=== PATIENT | male | born 1960 | race Two or more races ===

== ENCOUNTER 2017-10-13 11:17 | Emergency (ER) | payer OTHER, MEDICARE ==
--- NOTE | 2017-10-13 11:47 | ER Document Report ---
ED Medical Screen (RME) - General Chief Complaint: High Blood Pressure Stated Complaint: BLOOD PRESSURE ISSUES Time Seen by Provider: 10/13/17 11:45 Mode of Arrival: Ambulatory Information source: Patient Notes: 57-year-old male presents from the [place] with concerns of high blood pressure. Patient notes he is on lisinopril, his dosage was cut in half over the past month, patient denies any fevers or chills, patient does admit headache and left jaw pain. Patient notes symptoms have been worsening over the past week I have greeted and performed a rapid initial assessment of this patient. A comprehensive ED assessment and evaluation of the patient, analysis of test results and completion of the medical decision making process will be conducted by additional ED providers. PHYSICAL EXAMINATION: GENERAL: Well-appearing, well-nourished and in no acute distress. hypertensive HEAD: Atraumatic, normocephalic. EYES: Pupils equal round extraocular movements intact, conjunctiva are normal. ENT: Nares patent NECK: Normal range of motion LUNGS: No respiratory distress Musculoskeletal: Normal range of motion NEUROLOGICAL: Normal speech, normal gait. PSYCH: Normal mood, normal affect. SKIN: Warm, Dry, normal turgor, no rashes or lesions noted. TRAVEL OUTSIDE OF THE [place] IN LAST 30 DAYS: No - Related Data Allergies/Adverse Reactions: No Known Allergies Allergy (Unverified 10/13/17 11:19) Physical Exam - Vital signs Vitals: Temp Pulse Resp BP Pulse Ox 98.7 F 75 20 206/96 H 94 10/13/17 11:22 10/13/17 11:22 10/13/17 11:22 10/13/17 11:22 10/13/17 11:22 Course - Vital Signs Vital signs: Temp Pulse Resp BP Pulse Ox 98.7 F 75 20 206/96 H 94 10/13/17 11:22 10/13/17 11:22 10/13/17 11:22 10/13/17 11:22 10/13/17 11:22
[2017-10-13] MEDS ORDERED: CLONIDINE HCL 0.2 MG TABLET PO ONE (11:55)
[2017-10-13 12:18] LABS: ABSOLUTE BASOPHILS # (AUTO) 0.1 10^3/uL (0.0-0.2); ABSOLUTE EOSINOPHILS # (AUTO) 0.2 10^3/uL (0.0-0.6); ABSOLUTE LYMPHOCYTES (AUTO) 2.6 10^3/uL (0.5-4.7); ABSOLUTE MONOCYTES (AUTO) 0.7 10^3/uL (0.1-1.4); ABSOLUTE NEUT (AUTO) 4.5 10^3/uL (1.7-8.2); BASOPHILS % (AUTO) 0.8 % (0-2); HEMATOCRIT 51.3 % (37.9-51.0); HEMOGLOBIN 17.3 g/dL (13.5-17.0); LYMPHOCYTES % (AUTO) 32.8 % (13-45); MEAN CORPUSCULAR HEMOGLOBIN 31.6 pg (27.0-33.4); MEAN CORPUSCULAR HGB CONC 33.8 g/dL (32.0-36.0); MEAN CORPUSCULAR VOLUME 93 fl (80-97); MONOCYTES % (AUTO) 8.5 % (3-13); PLATELET COUNT 167 10^3/uL (150-450); RED BLOOD COUNT 5.49 10^6/uL (4.35-5.55); RED CELL DISTRIBUTION WIDTH 13.4 % (11.5-14.0); SEGMENTED NEUTROPHILS % (AUTO) 55.9 % (42-78); TOTAL CELLS COUNTED % (AUTO) 100 %; WHITE BLOOD COUNT 8.1 10^3/uL (4.0-10.5)
--- NOTE | 2017-10-13 12:32 | RADIOLOGY REPORT (SQ) ---
EXAM DESCRIPTION: CT HEAD WITHOUT COMPLETED DATE/TIME: 10/13/2017 12:15 pm REASON FOR STUDY: hypertension COMPARISON: None. TECHNIQUE: Axial images acquired through the brain without intravenous contrast. Images reviewed wi th bone, brain and subdural windows. Images stored on PACS. All CT scanners at this facility use dose modulation, iterative reconstruction, and/or weight based d osing when appropriate to reduce radiation dose to as low as reasonably achievable (ALARA). [facility]: Dose Right [facility]: CareDose [facility]: Dose Right [facility]: Teradose 4D [facility]: VERTILAS RADIATION DOSE: CT Rad equipment meets quality standard of care and radiation dose reduction techniq ues were employed. CTDIvol: 64.6 mGy. DLP: 1163 mGy-cm. mGy. LIMITATIONS: Very mild motion artifact FINDINGS: VENTRICLES: Normal size and contour. CEREBRUM: No masses. No hemorrhage. No midline shift. No evidence for acute infarction. Normal gra y/white matter differentiation. No areas of low density in the white matter. CEREBELLUM: No masses. No hemorrhage. No alteration of density. No evidence for acute infarction. EXTRAAXIAL SPACES: No fluid collections. No masses. ORBITS AND GLOBE: No intra- or extraconal masses. Normal contour of globe without masses. CALVARIUM: No fracture. PARANASAL SINUSES: No fluid or mucosal thickening. SOFT TISSUES: No mass or hematoma. OTHER: No other significant finding. IMPRESSION: NORMAL BRAIN CT WITHOUT CONTRAST. EVIDENCE OF ACUTE STROKE: NO. COMMENT: Quality ID # [id number]: Final reports with documentation of one or more dose reduction techniques (e.g., Automated exposure control, adjustment of the mA and/or kV according to patient size, use of iterative reconstruction technique) TECHNICAL DOCUMENTATION: JOB ID: [id number] [employer]- All Rights Reserved
--- NOTE | 2017-10-13 12:36 | RADIOLOGY REPORT (SQ) ---
EXAM DESCRIPTION: CHEST PA/LAT COMPLETED DATE/TIME: 10/13/2017 12:28 pm REASON FOR STUDY: hypertension COMPARISON: None. EXAM PARAMETERS: NUMBER OF VIEWS: two views TECHNIQUE: Digital Frontal and Lateral radiographic views of the chest acquired. RADIATION DOSE: NA LIMITATIONS: none FINDINGS: LUNGS AND PLEURA: No opacities, masses or pneumothorax. No pleural effusion. MEDIASTINUM AND HILAR STRUCTURES: No masses or contour abnormalities. HEART AND VASCULAR STRUCTURES: Heart normal size. No evidence for failure. BONES: No acute findings. HARDWARE: None in the chest. OTHER: No other significant finding. IMPRESSION: NO SIGNIFICANT RADIOGRAPHIC FINDING IN THE CHEST. TECHNICAL DOCUMENTATION: JOB ID: [id number] [employer]- All Rights Reserved
[2017-10-13 12:42] LABS: ALANINE AMINOTRANSFERASE 63 U/L (21-72); ALBUMIN 4.4 g/dL (3.5-5.0); ALKALINE PHOSPHATASE 86 U/L (38-126); ANION GAP 11 (5-19); ASPARTATE AMINO TRANSFERASE 72 U/L (17-59); BILIRUBIN,DIRECT 0.4 mg/dL (0.0-0.4); BILIRUBIN,TOTAL 0.8 mg/dL (0.2-1.3); BLOOD UREA NITROGEN 15 mg/dL (7-20); CALCIUM 9.1 mg/dL (8.4-10.2); CARBON DIOXIDE 26 mmol/L (22-30); CHLORIDE 104 mmol/L (98-107); CREATINE KINASE 133 U/L (55-170); GLUCOSE 99 mg/dL (75-110); POTASSIUM 3.9 mmol/L (3.6-5.0); SODIUM 140.6 mmol/L (137-145); TOTAL PROTEIN 8.3 g/dL (6.3-8.2)
[2017-10-13] MEDS ORDERED: FUROSEMIDE 40 MG TABLET PO ONE (12:52)
[2017-10-13 12:53] LABS: CREATINE KINASE MB 3.44 ng/mL (<4.55)
[2017-10-13 12:55] LABS: TROPONIN I < 0.012 ng/mL
--- NOTE | 2017-10-13 12:59 | ER Document Report ---
ED Blood Pressure Problem - General Chief Complaint: High Blood Pressure Stated Complaint: BLOOD PRESSURE ISSUES Time Seen by Provider: 10/13/17 11:45 Mode of Arrival: Ambulatory Notes: Patient was referred here from the [place] [facility] where he was seen today and his blood pressure was high. He thinks it was about 180/110. He has a history of hypertension and was on lisinopril 40 mg a day, but a few months ago, he was advised to cut those pills in half and take 20 mg a day, which he says he is doing. He has previously also been on Lasix 40 mg daily, but the [place] told him to get his primary care to write prescriptions for that medication, so he has not been taking it for several months. He is having pain in both of his shoulders and in his neck where he has had a cervical fusion. Denies chest pain. Denies any difficulty breathing or shortness of breath. Also says he is having some jaw pain. Apparently someone questioned whether he might be having a stroke, although the patient denies any neurologic deficits or loss of consciousness, etc. does say he has a "massive" headache. Patient was triaged here and his blood pressure was 206/96 and he was given 0.2 mg of clonidine p.o. in triage. Patient has a history of A. fib with ablation therapy and now is in a normal sinus rhythm. High cholesterol. TRAVEL OUTSIDE OF THE [place] IN LAST 30 DAYS: No - Related Data Allergies/Adverse Reactions: No Known Allergies Allergy (Verified 10/13/17 12:21) Past Medical History - General Information source: Patient - Social History Smoking Status: Former Smoker Chew tobacco use (# tins/day): No Frequency of alcohol use: None Drug Abuse: None Family History: Reviewed & Not Pertinent Patient has suicidal ideation: No Patient has homicidal ideation: No - Past Medical History Cardiac Medical History: Reports: Hx Atrial Fibrillation - Ablation therapy, Hx Hypercholesterolemia, Hx Hypertension Neurological Medical History: Denies: Hx Cerebrovascular Accident Endocrine Medical History: Denies: Hx Diabetes Mellitus Type 1, Hx Diabetes Mellitus Type 2 Musculoskeltal Medical History: Reports Hx Arthritis Psychiatric Medical History: Reports: Hx Anxiety, Hx Depression Past Surgical History: Reports: Hx Orthopedic Surgery - right knee Review of Systems - Review of Systems Notes: REVIEW OF SYSTEMS: CONSTITUTIONAL : Denies fever. EENT: Denies eye, ear, nose or mouth or throat pain or other symptoms. Jaw pain off and on for the past month. CARDIOVASCULAR: Denies chest pain. RESPIRATORY: Denies cough, chest congestion, or shortness of breath. GASTROINTESTINAL: Denies abdominal pain or nausea, vomiting, or diarrhea. GENITOURINARY: Denies difficulty or painful urinating, urinary frequency, blood in urine. MUSCULOSKELETAL: Denies back or neck pain. Denies joint pain or swelling. SKIN: Denies rash or skin lesions. NEUROLOGICAL: Denies LOC or altered mental status. Has a "massive" headache now. Denies sensory loss or motor deficits. ALL OTHER SYSTEMS REVIEWED AND NEGATIVE. Physical Exam - Vital signs Vitals: Temp Pulse Resp BP Pulse Ox 98.7 F 75 20 206/96 H 94 10/13/17 11:22 10/13/17 11:22 10/13/17 11:22 10/13/17 11:22 10/13/17 11:22 Interpretation: Hypertensive - Notes Notes: PHYSICAL EXAMINATION: GENERAL: Well-appearing, in no acute distress. Triage blood pressure was 206/ 96. Other vital signs all normal. HEAD: Atraumatic, normocephalic. EYES: Pupils equal round and reactive to light, extraocular movements intact. ENT: oropharynx clear without exudates. Moist mucous membranes. NECK: Normal range of motion, supple. Some limitation in movement because the patient experiences pain. No carotid bruits heard. LUNGS: Breath sounds clear and equal bilaterally. HEART: Regular rate and rhythm without murmurs. Sinus rhythm by monitor at the bedside. ABDOMEN: Soft, nontender. No guarding or rebound. No masses. BACK: No tenderness throughout entire back. EXTREMITIES: Normal range of motion without pain. NEUROLOGICAL: Normal speech, normal gait. Normal sensory, motor, and reflex exams. Awake, alert, and oriented x3. Cranial nerves normal. PSYCH: Normal mood, normal affect. SKIN: Warm, dry, no rashes. Course - Re-evaluation Re-evalutation: 10/13/17 13:06 Patient was given 0.2 mg of clonidine p.o. in triage. His systolic blood pressure now is in the 150s. 10/13/17 14:30 Blood pressure still running in the 150s systolic. Patient says his headache is completely gone. Discussed lab results and shared with the patient that his hemoglobin and hematocrit are high. Remaining liver and kidney functions all seem to be normal. Am writing him a prescription for Lasix 40 mg daily for him to add to his current treatment regimen. Advised him to have his blood pressure rechecked at the [place] [facility] in 1-2 weeks. He is advised to make him aware of his elevated hemoglobin and hematocrit. - Vital Signs Vital signs: Temp Pulse Resp BP Pulse Ox 98.7 F 75 20 135/79 H 97 10/13/17 11:22 10/13/17 11:22 10/13/17 14:21 10/13/17 14:21 10/13/17 14:21 - Laboratory Result Diagrams: 10/13/17 12:05 10/13/17 12:05 Laboratory results interpreted by me: 10/13/17 10/13/17 12:05 12:05 Hgb 17.3 H Hct 51.3 H AST 72 H Total Protein 8.3 H - Diagnostic Test Radiology reviewed: Image reviewed, Reports reviewed - CT scan of the head is normal. Chest x-ray is normal. - EKG Interpretation by Sd EKG shows normal: Sinus rhythm Rate: Normal Rhythm: NSR Additional EKG results interpreted by me: 10/13/17 13:09 EKG is normal. Discharge - Discharge Clinical Impression: Hypertension, Polycythemia, Arthritis Condition: Stable Disposition: HOME, SELF-CARE Additional Instructions: HIGH BLOOD PRESSURE REQUIRING TREATMENT: Your blood pressure is high. This is called "hypertension." Today's reading was 206/96 (normal is less than 140/90). Your history and exam suggest that this is not a temporary problem. You need treatment of your blood pressure. If left untreated, high blood pressure greatly increases your risk of heart attack and stroke. Please don't ignore this problem. If you have blood pressure medicine but aren't using it regularly, start taking it again. Some simple things you can do to help are: Get some aerobic exercise for at least 20 minutes on a daily basis. (See your doctor before beginning any new exercise program.) Eat a low-fat diet. Lose excess weight. Avoid salty foods and avoid adding salt to any of the foods you eat. Avoid diet pills, decongestants, "energizing" herbs, and other medicines that elevate blood pressure. There are many different medicines that treat blood pressure. If your medication causes unpleasant side effects, call your doctor. There are others you can try. Treating hypertension is a life-long investment in your health. CLONIDINE (CATAPRES): Clonidine is blood-pressure medicine. It works in your brain, making the nervous system relax the blood vessels. This medicine can also be used for symptoms of narcotic withdrawal. Clonidine frequently causes dry mouth, drowsiness, and dizziness. These symptoms go away as you continue to use it. Rest for the first couple of days. Don't drive or use machinery until you're back to normal. Never stop clonidine suddenly! There can be a "rebound" severe increase in blood pressure, headache, and agitation. Be sure you always have enough of the medicine. Call the doctor if you have any new symptoms such as skin rash, weakness, severe lightheadedness, chest pain, headache, or depression. Lasix Furosemide (Lasix) has been prescribed to eliminate excess fluid from your system. Lasix forces the kidney to put out extra salt and water in the urine. It is used for fluid retention due to heart or lung disease -- improving the symptoms of swelling, shortness of breath, and fatigue. Lasix may cause potassium loss (hypokalemia), so a potassium supplement is usually prescribed. If no potassium has been recommended for you, be sure to have your serum potassium checked after a short time on the medication. Contact your doctor if you have severe weakness or palpitations. Weigh yourself daily. Changes in your weight show how much salt and water your body is eliminating (or retaining). Generally, you should not lose more than about two pounds daily. Once you have lost the desired amount of extra fluid, continued weighing is recommended to monitor your condition. Try to arrange an appointment to follow-up and have your blood pressure checked at the [place] clinic in 1-2 weeks. Your red blood cell count, your hemoglobin and hematocrit, are elevated from some unknown reason. It might possibly be your normal from having been a cigarette smoker until recently. Make the [place] aware of this finding from the lab values that I gave you to keep for your records. Polycythemia We have found a higher than normal count of red blood cells. When the blood is thick with extra red cells, we call it "polycythemia." Blood cells are created in your bone marrow. In polycythemia, the marrow is over-active, making extra blood cells. Polycythemia can be a reaction to low oxygen in your blood, as occurs with chronic bronchitis or sleep apnea. Sometimes no clear cause is found. Polycythemia can be dangerous, because the thickened blood clots more easily. There's a higher risk of stroke, heart attack, and blood clots. The best treatment for polycythemia is to treat the underlying cause. For example, treating lung disease to increase the blood oxygen may lower the count of red blood cells. If it's not possible to eliminate the cause of polycythemia , you may be treated by removing some of your blood from time to time. This lowers the count of red cells and makes the blood thinner. Call your doctor or return if you have chest pain or new shortness of breath, or symptoms of a stroke such as memory problems, severe headache, vomiting, severe dizziness, weakness or numbness, double vision, a seizure, or problems with balance or coordination. FOLLOW-UP CARE: If you have been referred to a physician for follow-up care, call the physician s office for an appointment as you were instructed or within the next two days. If you experience worsening or a significant change in your symptoms, notify the physician immediately or return to the Emergency Department at any time for re-evaluation. Prescriptions: Furosemide [Lasix 40 mg Tablet] 40 mg PO QAM #30 tablet
--- NOTE | 2017-10-13 13:24 | EKG REPORT ---
SEVERITY:- NORMAL ECG - SINUS RHYTHM : Confirmed by: Patrick Michaud MD 13-Oct-2017 13:22:53
[2017-10-13 14:40] VITALS: BP 135/79
== END 2017-10-13 14:39 | disposition home or self-care (01) ==
LOC: ER 11:17
DX: I10 Essential (primary) hypertension (principal); M19.90 Unspecified osteoarthritis, unspecified site; D75.1 Secondary polycythemia; I48.91 Unspecified atrial fibrillation; R68.84 Jaw pain; E78.00 Pure hypercholesterolemia, unspecified; Z87.891 Personal history of nicotine dependence
CPT/HCPCS: 36415; 70450; 71046; 80053; 82550; 82553; 84484; 85025; 93005; 93010; 99284

== ENCOUNTER 2019-10-05 05:15 | Day surgery (SDC) | payer OTHER, MEDICARE ==
[~2019-10-05 05:15] MED LIST: ACETAMINOPHEN 325 MG TABLET PO PRN; CEFAZOLIN SODIUM 2 GM in DEXTROSE 5%-WATER 100 ML IV PRN; IBUPROFEN 800 MG in NORMAL SALINE 250 ML IV PRN; LACTATED RINGERS 1000 ML IV PRN
[2019-10-05] MEDS ORDERED: ACETAMINOPHEN 325 MG TABLET ONE (05:18)
[2019-10-05] MEDS ORDERED: SUGAMMADEX SODIUM 200 MG/2 ML SDV IV ONE (06:32)
[2019-10-05] MEDS ORDERED: FENTANYL CITRATE INJ/PF 100 MCG/2 ML AMPUL ONE (06:32)
[2019-10-05] MEDS ORDERED: ONDANSETRON HCL INJ/PF 4 MG/2 ML SDV ONE (06:32)
[2019-10-05] MEDS ORDERED: DEXAMETHASONE SOD PHOSPHATE INJ 4 MG/1 ML VIAL ONE (06:32)
[2019-10-05] MEDS ORDERED: MIDAZOLAM 2 MG/2 ML INJ ONE (06:32)
[2019-10-05] MEDS ORDERED: PROPOFOL INJ 200 MG/20 ML VIAL IV ONE (06:33)
[2019-10-05] MEDS ORDERED: LIDOCAINE 0.5% INJ-PF (5 MG/ML) 50 ML SDV ONE (06:42)
[2019-10-05] MEDS ORDERED: BUPIVACAINE HCL 0.25 % INJ/PF (2.5 MG/1 ML) 30 ML VIAL ONE (07:10)
[2019-10-05] MEDS ORDERED: BUPIVACAINE HCL 0.25 % INJ/PF (2.5 MG/1 ML) 30 ML VIAL INJ ONE (07:19)
[2019-10-05] MEDS ORDERED: DIPHENHYDRAMINE HCL 50 MG/ML VIAL IV PRN (08:33)
[2019-10-05] MEDS ORDERED: MORPHINE SULFATE 10 MG/ML INJ IV PRN (08:33)
[2019-10-05] MEDS ORDERED: PROMETHAZINE HCL INJ 25 MG/1 ML VIAL IV PRN ×2 (08:33)
[2019-10-05] MEDS ORDERED: ONDANSETRON HCL INJ/PF 4 MG/2 ML SDV IV PRN (08:33)
[2019-10-05] MEDS ORDERED: MEPERIDINE HCL/PF INJ 25 MG/1 ML DISP.SYRIN IV PRN (08:33)
[2019-10-05] MEDS ORDERED: FENTANYL CITRATE INJ/PF 100 MCG/2 ML AMPUL IV PRN ×3 (08:33)
--- NOTE | 2019-10-05 09:17 | Discharge Summary ---
Discharge Summary (SDC) - Discharge Final Diagnosis: Left inguinal hernia, symptomatic, indirect Date of Surgery: 10/05/19 Discharge Date: 10/05/19 Condition: Stable Treatment or Instructions: Discharge home. Diet as tolerated. Activity: No lifting more than 10 pounds x 2 weeks. Follow-up with me in 7 to 10 days. Okay to shower on Tuesday. [place] 10/325 mg p.o. every 6 hours PRN for pain. Ibuprofen 800 mg 3 times daily with meals. Prescriptions: Ibuprofen [Ibu] 800 mg PO TID #42 tablet Hydrocodone/Acetaminophen [[place] 10-325 mg Tablet] 1 tab PO Q6HP PRN #15 tablet PRN Reason: For Pain Referrals: [facility] [Primary [facility]] - Discharge Diet: As Tolerated Respiratory Treatments at Home: Deep Breathing/Coughing, Incentive Spirometer Discharge Activity: No Lifting Over 10 Pounds, No Lifting/Push/Pulling Home Care Assistance: None Needed Report the Following to Your Physician Immediately: Shortness of Breath, Nausea, Vomiting, Increase in Pain, Fever over 101 Degrees, Unusual Bleeding, Redness
--- NOTE | 2019-10-05 09:22 | Operative Report ---
Nonrecallable Operative Report PREOPERATIVE DIAGNOSIS: Symptomatic left inguinal hernia. POSTOPERATIVE DIAGNOSIS: Symptomatic, indirect left inguinal hernia. OPERATION: Robot-assisted laparoscopic left inguinal hernia repair with mesh. SURGEON: ADRIANNE FAY ANESTHESIA: GA TISSUE REMOVED OR ALTERED: None COMPLICATIONS: None apparent ESTIMATED BLOOD LOSS: Minimal PROCEDURE: Drain/implants: Left-sided 3 DMax inguinal hernia mesh. Procedure in detail: After informed consent was obtained, the patient was brought to the operating room and laid in the supine position. The area of the abdomen was prepped and draped in a normal sterile fashion. A supraumbilical incision was created with a 15 blade scalpel. Dissection was carried through the subcutaneous tissues using sharp and blunt dissection. The linea alba fascia was incised sharply, the abdomen was entered sharply. The balloon trocar was inserted, pneumoperitoneum was achieved. 2 right and left robotic 8 mm trochars were then placed under direct laparoscopic visualization. The robot was then brought over the patient and docked appropriately. I then assumed my position at the surgeon's console. Attention was turned to the left groin. A preperitoneal dissection was undertaken 3 cm superior to the inguinal hernia defect. The preperitoneal dissection was performed using sharp dissection, blunt dissection, and electrocautery. Once the preperitoneal space was opened, the indirect inguinal hernia defect was identified. A large lipoma of the cord was reduced back into the abdominal cavity. Next, the cord structures were dissected and cleaned, very carefully. This was done in order to avoid injury to the cord structures. This was done successfully. Next a large left-sided 3 DMax inguinal hernia mesh was placed into the abdominal cavity. It was situated in the preperitoneal space. It was sutured to the anterior abdominal wall and pelvis using 2-0 Vicry l suture in simple interrupted fashion. This was done both medially and superiorly. Once this was completed, the peritoneum was closed using running 2- 0 V Lock suture. Once this was completed, the hernia repair was found to be in good order. The robot was then undocked, and I scrubbed back into the case. The trochars were then removed. The supraumbilical fascia was closed using 0 Vicryl suture in [id number] fashion. The overlying skin was closed in 4-0 Vicryl Rapide suture in subcuticular fashion. Dressings were placed, and the procedure was concluded. All sponge, instrument, needle counts were correct x2. Condition: Stable.
[2019-10-05] MEDS ORDERED: ROCURONIUM BROMIDE INJ 50 MG/5 ML VIAL IV ONE (09:40)
[2019-10-05 13:19] VITALS: BP 163/63
--- NOTE | 2019-10-05 20:18 | EKG REPORT ---
SEVERITY:- NORMAL ECG - SINUS RHYTHM : Confirmed by: Patrick Michaud MD 05-Oct-2019 20:18:26
== END 2019-10-05 12:00 | disposition home or self-care (01) ==
LOC: OROUT 05:15
PROVIDERS: ATTEND Surgery
DX: K40.90 Unilateral inguinal hernia, without obstruction or gangrene, not specified as recurrent (principal); R41.3 Other amnesia; F32.9 Major depressive disorder, single episode, unspecified; I48.91 Unspecified atrial fibrillation; I10 Essential (primary) hypertension; Z86.718 Personal history of other venous thrombosis and embolism; Z87.891 Personal history of nicotine dependence; Z79.899 Other long term (current) drug therapy
CPT/HCPCS: 49650; S2900; 36415; 840; 84132; 86850; 86900; 86901; 93005; 93010; C1781; J0690; J1100; J1741; J2250; J2405; J2704; J3010; J3490; J7050; J7060